=== PATIENT | male | born 1965 | race Caucasian/White ===

== ENCOUNTER 2019-11-04 01:29 | Outpatient (CLI) | payer OTHER, SELFPAY ==
--- NOTE | 2019-11-04 | DI.MRI_ITS ---
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 [id number] TECHNIQUE: Multiplanar multisequence MRI of the brain was performed. CONTRAST MATERIAL: IV Contrast: 18 ML of Dotarem contrast administered. COMPARISON: There are no priors for comparison at this time. Should they become available, an adden dum will be issued. FINDINGS: VENTRICLES AND EXTRA AXIAL SPACES: Normal in size and morphology for the patient's age. HEMORRHAGE: None. CEREBRAL PARENCHYMA: No focus of restricted diffusion to suggest acute infarct. There is an enhancing extra-axial lesion in the medial aspect of the left middle cranial fossa abutting the body of the le ft sphenoid bone. The mass measures 4.5 cm AP x 1.7 cm transverse by 1.9 cm craniocaudal. It is maisha stinguishable from the adjacent cavernous sinus. There does appear to be mild medial displacement of the cavernous portion of the internal carotid artery. There is mass effect on the adjacent temporal lobe. The findings would be consistent with a meningioma. MIDLINE SHIFT: None. BRAINSTEM/CEREBELLUM: Normal. CALVARIUM: Normal. ENHANCEMENT: Please see above. VISUALIZED PARANASAL SINUSES/MASTOIDS: Clear. OTHER FINDINGS: There is a normal flow void in the [id number]-va-[id number]. IMPRESSION: Enhancing extra-axial lesion in the left middle cranial fossa as described above. The findings are m ost consistent with the patient's known meningioma. DATA REPOSITORY:
[2019-11-04 11:14] LABS: CREATININE 0.92 mg/dL (0.70-1.30)
[2019-11-04] MEDS: Normal Saline Flush 10 ML SYR IVP (11:27)
[2019-11-04] MEDS: Gadoterate meglumine 20 ML VIAL 18 ML IVP (11:28)
== END 2019-11-04 01:49 ==
PROVIDERS: Visit Provider Radiology Radiation Oncology
DX: D32.0 Benign neoplasm of cerebral meninges (principal)
CPT/HCPCS: 70553; 82565

== ENCOUNTER 2020-02-08 01:45 | Outpatient (CLI) | payer OTHER, SELFPAY ==
--- NOTE | 2020-02-08 | DI.MRI_ITS ---
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 CONTRAST MATERIAL: IV Contrast: 18 ML of Dotarem contrast administered. COMPARISON: MR MR BRAIN WO/W from 11/04/2019 FINDINGS: VENTRICLES AND EXTRA AXIAL SPACES: Normal in size and morphology for the patient's age. HEMORRHAGE: None. CEREBRAL PARENCHYMA: No focus of restricted diffusion to suggest acute infarct. No space-occupying le reyes identified. MIDLINE SHIFT: None. BRAINSTEM/CEREBELLUM: Normal. CALVARIUM: Normal. ENHANCEMENT: There has been no change in the patient's known meningioma adjacent to the left sphenoid bone and involving the cavernous sinus. Mass is stable in size. There is unchanged medial displacem ent of the cavernous portion of the left internal carotid artery. VISUALIZED PARANASAL SINUSES/MASTOIDS: Clear. [place]: Normal flow void. PITUITARY GLAND: Unremarkable. OTHER FINDINGS: IMPRESSION: Stable meningioma. DATA REPOSITORY:
[2020-02-08] MEDS: Gadoterate meglumine 20 ML VIAL 18 ML IVP (10:10)
[2020-02-08] MEDS: Normal Saline Flush 10 ML SYR IVP (10:12)
== END 2020-02-08 02:05 ==
PROVIDERS: PCP Radiology Radiation Oncology; Visit Provider Radiology Radiation Oncology
DX: D32.0 Benign neoplasm of cerebral meninges (principal)
CPT/HCPCS: 70553; 82565

== ENCOUNTER 2020-05-09 01:53 | Outpatient (CLI) | payer OTHER, SELFPAY ==
--- NOTE | 2020-05-09 | DI.MRI_ITS ---
EXAM: MR BRAIN WO/W CLINICAL HISTORY: F/U MENINGIOMAM,S/P RT,[id number],ASSESS FOR RESPONSE. TECHNIQUE: Multiplanar multisequence MRI of the brain was performed. CONTRAST MATERIAL: IV Contrast: 18 ML of Dotarem contrast administered. COMPARISON: MR MR BRAIN WO/W from 02/08/2020 FINDINGS: VENTRICLES AND EXTRA AXIAL SPACES: Normal in size and morphology for the patient's age. HEMORRHAGE: None. CEREBRAL PARENCHYMA: No focus of restricted diffusion to suggest acute infarct. No change in size or appearance of the previously noted left cavernous sinus and sphenoid wing meningioma. MIDLINE SHIFT: None. BRAINSTEM/CEREBELLUM: Normal. CALVARIUM: Normal. VISUALIZED PARANASAL SINUSES/MASTOIDS: Clear. The vascular flow voids are intact. IMPRESSION: Stable left sphenoid meningioma. No new abnormalities. DATA REPOSITORY:
[2020-05-09 08:42] LABS: CREATININE 0.75 mg/dL (0.70-1.30)
[2020-05-09] MEDS: Normal Saline Flush 10 ML SYR IVP (12:25)
[2020-05-09] MEDS: Gadoterate meglumine 20 ML VIAL 18 ML IVP (12:26)
== END 2020-05-09 02:13 ==
PROVIDERS: PCP Radiology Radiation Oncology; Visit Provider Radiology Radiation Oncology
DX: D32.0 Benign neoplasm of cerebral meninges (principal)
CPT/HCPCS: 70553; 82565

== ENCOUNTER 2021-03-09 03:43 | Outpatient (CLI) | payer OTHER, SELFPAY ==
--- NOTE | 2021-03-09 | DI.MRI_ITS ---
Exam(s) MR BRAIN WO/W EXAM: MR BRAIN WO/W CLINICAL HISTORY: MENINGIOMA OF SPHENOID WING,D32.9,S/P TREATMENT,[id number] TECHNIQUE: Multiplanar multisequence MRI of the brain was performed. Both noninfused and contrast i nfused sequences were performed. IV Contrast injected was 17 cc Dotarem. COMPARISON: MR MR BRAIN WO/W from 05/09/2020 MR MR BRAIN WO/W from 05/09/2020 FINDINGS: CEREBRAL PARENCHYMA: No evidence of intracranial hemorrhage, new mass effect nor shift of midline str uctures. No extraaxial fluid collections. Ventricles are not enlarged nor shifted. There is no significant focal signal abnormality in the cerebellar hemispheres nor within the bertram, m idbrain, and thalami. There is no abnormal signal abnormality in the periventricular white matter. The previously described enhancing left cavernous sinus-sphenoid wing meningioma is again noted, unch anged in size. There are no new ring-enhancing lesions in the brain.. There are no new areas of abn ormal meningeal enhancement. PITUITARY GLAND: No mass nor parasellar abnormality. No obvious abnormality in the cavernous sinuses. FLOW VOIDS: The expected flow void are noted. No evidence of obvious aneurysm nor obvious vascular ma lformation. PARANASAL SINUSES: The visualized paranasal sinuses appear unremarkable. ORBITS: No obvious new abnormal findings. IMPRESSION: 1. Continued stable appearance of the previously described left sphenoid meningioma. 2. No new abnormal enhancing intracranial findings. DATA REPOSITORY:
[2021-03-09 10:00] LABS: CREATININE 0.6 mg/dL (0.70-1.30)
[2021-03-09] MEDS: Gadoterate meglumine 20 ML VIAL 17 ML IVP (10:09)
[2021-03-09] MEDS: Normal Saline Flush 10 ML SYR IVP (10:09)
== END 2021-03-09 04:03 ==
PROVIDERS: PCP Radiology Radiation Oncology; Referring Provider Internal Medicine; Visit Provider Nurse Practitioner
DX: D32.0 Benign neoplasm of cerebral meninges (principal)
CPT/HCPCS: 70553; 82565

== ENCOUNTER → 2021-11-29 01:46 | Outpatient (CLI) | payer OTHER, SELFPAY ==
[2021-11-29 09:54] LABS: ALT 28 U/L (16-63); AST 26 U/L (15-37); Albumin 4.2 g/dL (3.4-5.0); Alkaline Phosphatase 106 U/L (46-116); Anion Gap 7.5 mmol/L (3-11); BUN 8 mg/dL (7-18); Bilirubin, Total 0.7 mg/dL (0.2-1.0); CO2 28.5 mmol/L (21.0-32.0); CREATININE 0.8 mg/dL (0.70-1.30); Calcium 9.1 mg/dL (8.5-10.1); Chloride 101 mmol/L (98-107); Glucose 102 mg/dL (74-106); PHOSPHORUS 3.2 mg/dL (2.6-4.7); Potassium 3.9 mmol/L (3.5-5.1); Sodium 137 mmol/L (136-145); Total Protein 7.8 g/dL (6.4-8.2)
--- NOTE | 2021-11-29 10:00 | DI.MRI_ITS ---
Exam(s) MR BRAIN WO/W EXAM: MR BRAIN WO/W CLINICAL HISTORY: F/U MENINGIOMA OF SPHENOID WING,[id number],D32.9 TECHNIQUE: Multiplanar multisequence MRI of the brain was performed. Additional post contrast axial and coronal T1 weighted imaging and multi planar MP rage imaging were obtained as well. COMPARISON: MR MR BRAIN WO/W from 05/09/2020 MR MR BRAIN WO/W from 03/09/2021 FINDINGS: The ventricular system is normal in appearance. No signal abnormality identified in the brain. The orbital and temporal bone structures appear intact as does the pituitary. Diffusion weighted imaging shows no evidence of infarction. Susceptibility weighted imaging shows no evidence of intracranial hemorrhage. There is normal flow void in the [place] vasculature. Previously described subtle left sphenoid meningioma at the level of the cavernous sinus is again see n, findings appear unchanged comparison with prior examination of February 2021 and April 2020. No n ew mass lesion or enhancing lesion identified. IMPRESSION: No significant interval change in appearance of presumed left cavernous/sphenoid wing meningioma. No additional new findings.. DATA REPOSITORY:
[2021-11-29] MEDS: Normal Saline Flush 10 ML SYR IVP (10:10)
[2021-11-29] MEDS: Gadoterate meglumine 20 ML VIAL 18 ML IVP (10:10)
== END ==
PROVIDERS: PCP Radiology Radiation Oncology; Visit Provider Nurse Practitioner Family
DX: D32.0 Benign neoplasm of cerebral meninges; Z01.812 Encounter for preprocedural laboratory examination
CPT/HCPCS: 70553; 80053; 80069

== ENCOUNTER → 2022-07-31 01:16 | Outpatient (CLI) | payer OTHER, SELFPAY ==
--- NOTE | 2022-07-31 | DI.MRI_ITS ---
Exam(s) MR BRAIN WO/W EXAM: MR BRAIN WO/W CLINICAL HISTORY: F/U MENINGIOMA,Z86.011,[id number] TECHNIQUE: Multiplanar multisequence MRI of the brain was performed. Both noninfused and contrast i nfused sequences were performed. IV Contrast injected was 17 cc Dotarem. COMPARISON: MR MR BRAIN WO/W from 05/09/2020 MR MR BRAIN WO/W from 11/29/2021 FINDINGS: CEREBRAL PARENCHYMA: No evidence of intracranial hemorrhage, new mass effect nor shift of midline str ucture. The previously described left sphenoid wing enhancing meningioma is again noted and exhibits minimal if any significant change. No new additional dural-based enhancing lesions seen and there are no rin g enhancing lesions in the brain identified. No extraaxial fluid collections. Ventricles are not enlarged nor shifted. There is no significant focal signal abnormality in the cerebellar hemispheres nor within the bertram, m idbrain, and thalami. There is no abnormal signal abnormality in the periventricular white matter. DWI: No areas of restricted diffusion evident in the brain. PITUITARY GLAND: No mass nor parasellar abnormality. No obvious abnormality in the cavernous sinuses. FLOW VOIDS: The expected flow void are noted. No evidence of obvious aneurysm nor obvious vascular ma lformation. PARANASAL SINUSES: Circumferential mucosal thickening in both maxillary sinuses, more so on the right . No associated fluid level. Other paranasal sinuses are clear. Mastoid air cells are clear. ORBITS: No obvious abnormal findings. IMPRESSION: 1. No significant new intracranial findings. Stable appearance of the enhancing left sphenoid wing m eningioma. 2. No new abnormal enhancing intracranial findings. DATA REPOSITORY:
[2022-07-31] MEDS: Gadoterate meglumine 20 ML VIAL IVP (13:13)
[2022-07-31] MEDS: Normal Saline Flush 10 ML SYR IVP (13:13)
== END ==
PROVIDERS: PCP Radiology Radiation Oncology; Visit Provider Internal Medicine
DX: Z86.011 Personal history of benign neoplasm of the brain (principal)
CPT/HCPCS: 70553

== ENCOUNTER 2023-01-04 00:21 | Outpatient (CLI) | payer OTHER, SELFPAY ==
--- NOTE | 2023-01-04 | DI.MRI_ITS ---
Exam(s) MR BRAIN WO/W EXAM: MR BRAIN WO/W CLINICAL HISTORY: WORSENING HEADACHES,VISION CHANGES,BENIGN NEOPLASM BRAIN,D33.2,[id number] TECHNIQUE: Multiplanar multisequence MRI of the brain was performed. Both noninfused and contrast i nfused sequences were performed. IV Contrast injected was cc Dotarem. COMPARISON: MR MR BRAIN WO/W from 07/31/2022 FINDINGS: CEREBRAL PARENCHYMA: No evidence of intracranial hemorrhage, new mass effect nor shift of midline str ucture. No extraaxial fluid collections. Ventricles are not enlarged nor shifted. The previously described left sphenoid wing enhancing meningioma is again noted and appears unchanged . No new enhancing abnormal structures. No ring enhancing lesions in the brain. No new areas of ab normal meningeal enhancement, focal nor diffuse. There is no new abnormal signal abnormality in the periventricular white matter. DWI: No areas of restricted diffusion to suggest acute ischemic event. SWI: No microhemorrhages evident. There are no ring enhancing lesions in the brain. There is no abnormal meningeal enhancement. PITUITARY GLAND: No mass nor parasellar abnormality. No obvious abnormality in the cavernous sinuses. FLOW VOIDS: The expected flow void are noted. No evidence of obvious aneurysm nor obvious vascular ma lformation. PARANASAL SINUSES: The visualized paranasal sinuses appear unremarkable. ORBITS: No obvious abnormal findings. IMPRESSION: 1. Continued stable appearance of the left sphenoid wing meningioma, unchanged from MRI scan of 07/31. 2. No new intracranial findings. DATA REPOSITORY:
[2023-01-04] MEDS: Normal Saline Flush 10 ML SYR IVP (07:55)
[2023-01-04] MEDS: Gadoterate meglumine 20 ML SYRINGE 17 ML IVP (07:55)
== END 2023-01-04 00:41 ==
LOC: DI 00:21
PROVIDERS: PCP Radiology Radiation Oncology; Visit Provider Internal Medicine
DX: D33.2 Benign neoplasm of brain, unspecified (principal); R51.9 Headache, unspecified; H53.9 Unspecified visual disturbance
CPT/HCPCS: 70553

== ENCOUNTER 2024-04-07 02:26 | Outpatient (CLI) | payer OTHER, SELFPAY ==
--- NOTE | 2024-04-07 | DI.MRI_ITS ---
Exam(s) MR BRAIN WO/W EXAM: MR BRAIN WO/W CLINICAL HISTORY: H/O INOPERATABLE CAVERNOUS SINUS MENINGIOMA,[id number] TECHNIQUE: Multiplanar multisequence MRI of the brain was performed. Both noninfused and contrast i nfused sequences were performed. IV Contrast injected was 17 cc Dotarem. COMPARISON: MR MR BRAIN WO/W from 01/04/2023 FINDINGS: CEREBRAL PARENCHYMA: No evidence of intracranial hemorrhage, mass effect nor shift of midline structu re. No extraaxial fluid collections. Ventricles are not enlarged nor shifted. The previously described left sphenoid wing enhancing meningioma is again noted and again appears unc hanged. There are no new abnormal enhancing lesions in the brain. No ring enhancing lesions nor new abnormal meningeal enhancement. DWI: No areas of restricted diffusion to suggest acute ischemic event. SWI: No microhemorrhages evident. PITUITARY GLAND: No mass nor parasellar abnormality. No obvious abnormality in the cavernous sinuses. FLOW VOIDS: The expected flow void are noted. No evidence of obvious aneurysm nor obvious vascular ma lformation. PARANASAL SINUSES: There is circumferential mucosal thickening in both maxillary sinuses noted, simil ar to previous. No associated fluid levels. ORBITS: No obvious abnormal findings. IMPRESSION: 1. There is continued stable appearance of the left sphenoid wing meningioma, unchanged from prior MR I scan of 01/04/2023. 2. No new intracranial findings. DATA REPOSITORY:
== END 2024-04-07 02:46 ==
LOC: DI 02:26
PROVIDERS: PCP Radiology Radiation Oncology; Visit Provider Colon & Rectal Surgery
DX: D32.0 Benign neoplasm of cerebral meninges (principal)
CPT/HCPCS: 70553

== ENCOUNTER 2024-07-17 07:56 | Day surgery (SDC) | payer OTHER, SELFPAY ==
--- NOTE | 2024-07-16 17:14 | ANES.PREOP_ITS ---
General Info Date of Service Date Performed: 07/17/24 Height: 5 ft 9 in Weight: 93.44 kg Body Mass Index (BMI): 30.4 Surgical Procedure: Operation Date: 07/17/24 09:05 Proposed Procedure Side Surgeon verónica Camarena, Meds Allergies and Home Medications Allergies Allergy/AdvReac Type Severity Reaction Status Date / Time atorvastatin Allergy Unknown unknown Verified 07/17/24 08:06 gemfibrozil Allergy Unknown unknown Verified 07/17/24 08:06 rosuvastatin Allergy Unknown unknown Verified 07/17/24 08:06 Home Medication ?Medication ?Instructions ?Recorded allopurinol 100 mg tablet 100 mg PO DAILY 11/08/23 amlodipine 2.5 mg tablet 2.5 mg PO DAILY 11/08/23 ascorbic acid (vitamin C) 500 mg 500 mg PO DAILY 11/08/23 capsule indomethacin 50 mg capsule 50 mg PO TID 11/08/23 mecobalamin (vitamin B12) 10,000 1,000 mcg IM DIRECTED 11/08/23 mcg solution for injection omeprazole 20 mg capsule,delayed 20 mg PO DAILY 11/08/23 release omega-3 fatty acids 1,000 mg 1,000 mg PO DAILY 06/18/24 capsule Current Visit Medications: Current Medications Generic Name Dose Route Start Last Admin Trade Name Freq PRN Reason Stop Dose Admin Ringer's Solution 1,000 mls @ 80 mls/hr 07/17/24 06:00 IV 07/17/24 23:59 INFUSION STONE IV Miscellaneous Supplies 1 each 07/17/24 06:00 Iv Access IV 07/17/24 23:59 DIRECTED STONE Sodium Chloride 0 ml 07/17/24 06:00 Normal Saline Flush 10 Ml Syr IV 07/17/24 23:59 PRN PRN Sodium Chloride 0 ml 07/17/24 06:00 Normal Saline 10 Ml Vial IJ 07/17/24 23:59 DIRECTED PRN Sterile Water 0 ml 07/17/24 06:00 Water,Injection,Sterile 10 Ml Vial IJ 07/17/24 23:59 DIRECTED PRN PFSH Medical History Medical History Basal cell carcinoma (BCC) in situ of skin Closed fracture of ankle Benign neoplasm of cerebral meninges Actinic keratosis Leukonychia Meningioma HTN (hypertension) Thrombocytopenia Rosacea Tobacco Smoking/Tobacco Use Status: Never Alcohol Alcohol Intake: current Alcohol intake frequency: a few times a week Alcohol type: hard liquor Substance Use Substance use: Socially Substance use type: marijuana Vital Signs and Lab Results Vital Signs Most Recent Vital Signs in EMR: Temp Pulse Resp BP Pulse Ox 36 C L 96 H 18 144/95 H 96 07/17/24 08:07 07/17/24 08:07 07/17/24 08:07 07/17/24 08:07 07/17/24 08:07 Lab Results Blood Type / Crossmatch: No Data to Display Complete Blood Count: No Data to Display Complete Metabolic Panel: No Data to Display Liver Function Panel: No Data to Display Coagulation Panel: No Data to Display Cardiac Panel: No Data to Display Arterial Blood Gas: No Data to Display Venous Blood Gas: No Data to Display Pancreas Panel: No Data to Display Thyroid Panel: No Data to Display Infectious Disease: No Data to Display Blood Cultures: No Data to Display Toxicology Panel: No Data to Display Anesthesia Assessment and Plan Anesthesia History Personal History: No History of Anesthesia Complications Family History: No Family History of Anesthesia Complications Exercise Tolerance Exercise Tolerance: Metabolic Equivalents>4 Cardiac & Pulmonary Exam Cardiac Exam: Normal S1/S2 Heart Sounds Pulmonary Exam: Clear Bilateral Breath Sounds Implantable Cardiac Device Does patient have a Pacemaker or an ICD?: No Airway Exam Known Difficult Airway: No Mallampati Class: 4 Mouth Opening: Narrow (< 3cm) Thyromental Distance: Less than 3 cm Neck Range of Motion: Limited ROM Neck Circumference: Normal Teeth Condition: Normal Dentition ASA Classification ASA Score: ASA 2 Emergency Case?: No NPO Status NPO Status: NPO Clears >2 hours, Solids >8 hours Anesthesia Plan Resuscitation Status: Full Code Anesthesia Technique: General Anesthesia Airway Planned: Natural Airway Monitors Used: Standard Monitors Preoperative Comments:: 59 yo male for colo. Sig PMHx: HTN (amlodipine), GERD (omeprazole. well controlled) , thrombocy topenia, benign intracranial mass - makes him dizzy and eye tracking issues, never smoker, occ EtOH/cannabis.
--- NOTE | 2024-07-16 21:16 | COLE_ITS ---
Date of service: 07/17/24 Time of Service: 09:52 Colonoscopy Report Date of procedure: 07/17/24 Pre-op diagnosis general: CRC screening Post-op diagnosis procedure note: other (Polyps and diverticula) Surgeon: Khushi Camarena Anesthesia Type: General:No Airway Estimated blood loss (mL): 2 Pathology: other Complications: None Disposition: same day Prep: Miralax/Dulcolax Procedure Description: After informed consent was obtained, explaining risks of the procedure, including but not limits to: bleeding, infections, complications of anesthesia, perforations (which may require antibiotics and /or surgery and stay in the hospital), and abdominal pain/cramping. The patient was taken to the procedure room and placed in a left decubitous position. Monitors were applied and a time out was done. The patients name, date of , procedure, allergies to medications and metal in their body was reviewed. The patient was then sedated. Once sedated and comfortable a rectal exam was done. External exam was normal. Internal exam revealed a normal sphincter tone and no palpable masses. The prostate without masses The previously lubricated Olympus scope was then introduced (see RN notes for scope number) and retrofelexed. No internal hemorrhoids were identified. The scope was then advanced to the cecum without difficulty. The TI and appendiceal orifice were identified. The scope was then slowly retracted over [] minutes back into the rectum. Polyps: A pedunculated, .75cm polyp was found at 80 cm. This is removed with a cold snare. an additional pedunculated, 1cm polyp was found at 80 cm This was removed with a cold biting forceps. All of the specimen was retrieved. This will be sent to pathology. There is no bleeding noted from the polypectomy site. Diverticula: pt had a small amount of small mouthed diverticula in the sigmoid colon. There were no signs of active bleeding or infection. The mucosa is pink and healthy w/ a normal vascular pattern. The scope was removed, and the patient was woken up and taken back to Same day surgery in stable condition. The patient tolerated the procedure well and there were no immediate complications. Follow up: The patient should follow up in 3-5 years, unless they develop changes in bowel habits or other new gastrointestinal complaints. [place] Bowel Prep [place] Bowel Prep Right Colon: 3 Left Colon: 3 Transverse Colon: 3 Total Score: 9
--- NOTE | 2024-07-16 21:17 | PDOC.DSDIS_ITS ---
Date of service: 07/17/24 Discharge Plan Disposition Patient Disposition: Home Discharge Details Reason For Visit: CRC screening Attending Provider: Khushi Camarena Primary Care Provider: Nabil Panchal Home Meds and New Rx's Prescriptions: Continued omega-3 fatty acids 1,000 mg capsule 1,000 mg PO DAILY allopurinol 100 mg tablet 100 mg PO DAILY amlodipine 2.5 mg tablet 2.5 mg PO DAILY ascorbic acid (vitamin C) 500 mg capsule 500 mg PO DAILY omeprazole 20 mg capsule,delayed release(DR/EC) 20 mg PO DAILY indomethacin 50 mg capsule 50 mg PO TID Rx Instructions: administer with food or milk mecobalamin (vitamin B12) 10,000 mcg recon soln 1,000 mcg IM DIRECTED Discontinued bisacodyl [Dulcolax (bisacodyl)] 5 mg tablet,delayed release (DR/EC) 5 mg PO ONCE Qty: 4 0RF Rx Instructions: Take per colonoscopy instructions provided by ordering providers office polyethylene glycol 3350 17 gram/dose powder 17 g PO ONCE Qty: 238 0RF Rx Instructions: Take per colonoscopy instructions provided by ordering providers office Discharge Instructions Additional Instructions: DSU Colonoscopy Post- Op Instructions Instructions for Everyone who is given Anesthesia: For your safety, please do the following for the next twenty-four (24) hours: *Do Not operate a motor vehicle (car, truck, motorcycle, etc.) *Do Not drink alcoholic beverages or use any recreational drugs for the first 24 hours or while taking pain medications. The medications in your body may have a reaction that can be dangerous. *Do Not make any important decisions or sign any important papers. Findings: Polyps Diverticula-make sure you are moving your bowels on a regular basis and not straining. If you find you are having problems with constipation or straining, they want you we recommend you start a fiber product such as Metamucil daily. Follow up: My office will send you a letter in 3 weeks time the results of the biopsies and when we want you to repeat your colonoscopy, most likely 3 to 5 years time. 1. No lifting over 20 pounds or strenuous activity for the first 24 hours after your procedure. After 24 hours there are no restrictions on your activity but you may feel fatigued for a few days. 2. After you arrive home you may have a light meal and return to your normal diet as you can tolerate it without feeling sick to your stomach. 3. You may have a bloated, gaseous feeling in your belly (abdomen) after a colonoscopy. Passing gas and belching will help. Walking or lying down on your left side with your knees flexed may relieve the discomfort. Call the office at [phone] (Office) or [phone] (Hospital) right away if you notice any of the following: a.Vomiting of blood or ?coffee ground stools?. b.Rectal bleeding 1Tbsp, blood clots or continuous bleeding. c.Severe belly (abdominal) pain. d.A hard distended belly (abdomen) and an inability to pass gas. 4. Please don?t expect to have a normal BM (bowel movement) for 2-3 days after your procedure. 5. If there are questions regarding the findings of your procedure, please contact your doctor 6. If you are unable to contact your doctor with a problem, contact the hospital at [phone]. 7. Continue all your regular medications unless directed otherwise. I understand the above instructions and have no questions. Signature of Patient or Adult Escort Name of Responsible Adult Escort Signature of Nurse Date/Time Stand Alone Forms: Colonoscopy Post Instructions, Carli Cruz (DSU) Activity:: see above Diet:: see above Discharge Orders Discharge Orders: Discharge Order (Routine); Ordered 07/17/24 Ordered By: Khushi Camarena DS: Diagnosis Discharge Diagnosis (1) Screening for malignant neoplasm of colon performed: Status: Acute Asessment and Plan: The patient is seen and examined after their colonoscopy.? The patient has been able to pass gas.? They are not having abdominal pain.? They have been able to tolerate liquids and a snack.? They do not have any nausea or vomiting.? They are not having any chest pain or shortness of breath.??? They are not having any rectal bleeding. Their vital signs have been stable-see nursing notes. We discussed findings during their colonoscopy, and any biopsies that were done/polyps that were removed. The patient will be sent a letter with any biopsy results, and when to repeat the colonoscopy.-see discharge instructions. Patient was given explicit instructions to follow-up regarding colonoscopy-refer to discharge instructions.? We reviewed resumption of medications. Patient verbalized understanding and discharged in stable and satisfactory condition- See nursing notes. (2) Adenomatous polyps: Status: Acute (3) Diverticula of colon: Status: Acute
[2024-07-17 08:07] VITALS: BP 144/95; PULSE 96; RESP 18; TEMP 36; O2SAT 96
[2024-07-17] MEDS: Normal Saline Flush 10 ML SYR IV (08:26)
[2024-07-17 08:50] VITALS: BMI 30.4
--- NOTE | 2024-07-17 09:28 | BOWEL_PTH ---
PATIENT: Fermín Blackmon LOC: [facility] U#:[id number] AGE/SX: 59/M ROOM: RE07/17/[address]: Khushi Camarena : 1965 BED: DIS: 07/17/2024 SPEC #: [id number] RECD: 07/17/24 13:07 STATUS: [facility] #: [id number] FELISA: 07/17/24 09:[address]: Khushi Camarena DEPT: Surgical Specimen RECD BY: Rosalba Blackwell ENTERED: 07/17/24 13:08 SP TYPE: Bowel OTHR DR: Nabil Panchal Tissues: 1 - BIOPSY BOWEL 2 - BIOPSY BOWEL Procedures: GROSS AND MICRO LEVEL 4 Comments: [id number]
[2024-07-17 09:42] VITALS: BP 134/62; PULSE 86; RESP 14; TEMP 36.1; O2SAT 94
--- NOTE | 2024-07-17 09:48 | W.ANESPOSTOP ---
Postoperative Evaluation Date, Time and Location Date Performed: 07/17/24 Time Performed: 09:48 Patient Location: Day Surgery Unit Vital Signs Most Recent Imported Vital Signs: Most Recent Vital Signs Temp Pulse Resp BP Pulse Ox 36.1 C L 86 14 134/62 94 07/17/24 09:42 07/17/24 09:42 07/17/24 09:42 07/17/24 09:42 07/17/24 09:42 Pain Score Most Recent Pain Score: Most Recent Pain Score Pain Level 0 07/17/24 09:42 Assessment Mental Status: Awake (Alert & Oriented to Patient Baseline) Airway and Respiratory Function: Patent airway with normal (patient baseline) respiratory exam Cardiovascular Function: Hemodynamically Stable Hydration Status: Adequately Hydrated Nausea & Vomiting: No Nausea or Vomiting Pain: Pt. Denies Any Pain Peripheral Nerve Block: Patient did not receive a nerve block
[2024-07-17 10:04] VITALS: BP 136/97; PULSE 77; RESP 14; TEMP 36.1; O2SAT 95
== END 2024-07-17 10:20 | disposition home or self-care (01) ==
LOC: SUR 07:57
PROVIDERS: PCP Radiology Radiation Oncology; Visit Provider Surgery
PROC: 0DJD8ZZ Inspection of Lower Intestinal Tract, Via Natural or Artificial Opening Endoscopic (ICD-10-PCS; CPT 45378; principal; 2024-07-17 09:00)
DX: Z12.11 Encounter for screening for malignant neoplasm of colon (principal); K57.30 Diverticulosis of large intestine without perforation or abscess without bleeding; D12.4 Benign neoplasm of descending colon
CPT/HCPCS: 45385; 45380; 88305; J2704

== ENCOUNTER 2025-04-16 05:26 | Outpatient (CLI) | payer OTHER, SELFPAY ==
--- NOTE | 2025-04-16 | DI.MRI_ITS ---
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 TECHNIQUE: Multiplanar multisequence MRI of the brain was performed. CONTRAST MATERIAL: IV Contrast: 19 ML of Dotarem contrast administered. COMPARISON: MR MR BRAIN WO/W from 11/04/2019 MR MR BRAIN WO/W from 04/07/2024 FINDINGS: VENTRICLES AND EXTRA AXIAL SPACES: Normal in size and morphology for the patient's age. HEMORRHAGE: None. CEREBRAL PARENCHYMA: No focus of restricted diffusion to suggest acute infarct. No new space-occupying lesion identified. No significant white matter changes. BRAINSTEM/CEREBELLUM: Normal. Bones: No change in size or appearance of the previously noted enhancing mass at the medial aspect of the left temporal fossa, at the medial aspect of the sphenoid wing. The internal carotid artery is again deviated medially but is patent and not narrowed. ENHANCEMENT: No suspicious enhancement identified within the brain parenchyma. VISUALIZED PARANASAL SINUSES/MASTOIDS: mucosal thickening is again noted of the sub maxillary sinuses. Orbits: Unremarkable. Pituitary: Not enlarged. Vasculature: Normal flow voids. 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 No new abnormalities. DATA REPOSITORY:
[2025-04-16] MEDS: Gadoterate meglumine 20 ML SYRINGE IVP (13:02)
[2025-04-16] MEDS: Normal Saline Flush 10 ML SYR IVP (13:03)
== END 2025-04-16 05:46 ==
PROVIDERS: PCP Radiology Radiation Oncology; Visit Provider Colon & Rectal Surgery
DX: D33.2 Benign neoplasm of brain, unspecified (principal)
CPT/HCPCS: 70553